=== PATIENT | male | born 1940 | race Hispanic/Latino ===

== ENCOUNTER 2024-01-17 16:29 | Inpatient (IN) | payer MEDICARE ==
[~2024-01-17] VITALS: Ht 167.6 cm; Wt 102.1 kg
[2024-01-17 17:27] LABS: BASOPHILS # (AUTO) 0.1 (0.0-0.1); BASOPHILS % 0.5 % (0.0-1.0); EOSINOPHILS # (AUTO) 0.1 (0.0-0.4); EOSINOPHILS % 1.5 % (0.0-6.0); HEMOGLOBIN 13.8 g/dL (14.0-18.0); LYMPHOCYTES # (AUTO) 0.5 (1.0-3.2); LYMPHOCYTES % 5.1 % (18.0-39.1); MEAN CORPUSCULAR HEMOGLOBIN 31.4 pg (28-32); MEAN CORPUSCULAR HGB CONC 32.9 g/dL (31-35); MEAN CORPUSCULAR VOLUME 95.5 fL (81-99); MONOCYTES # (AUTO) 1.1 (0.2-0.8); MONOCYTES % 11.1 % (4.4-11.3); NEUTROPHILS # (AUTO) 7.7 (2.1-6.9); NEUTROPHILS % 81.3 % (38.7-80.0); PLATELET COUNT 233 x10e3/uL (140-360); RED CELL DISTRIBUTION WIDTH 15.3 % (11.7-14.4); WHITE BLOOD COUNT 9.49 x10e3/uL (4.8-10.8)
[2024-01-17 17:44] LABS: ALBUMIN 3.9 g/dL (3.5-5.0); ALBUMIN/GLOBULIN RATIO 1.1 (0.8-2.0); ANION GAP 17.3 mmol/L (8-16); BILIRUBIN,TOTAL 0.5 mg/dL (0.2-1.2); CALCIUM 9.1 mg/dL (8.4-10.2); CREATININE, SERUM 2.79 mg/dL (0.72-1.25); POTASSIUM 4.3 mmol/L (3.5-5.1); TOTAL PROTEIN 7.6 g/dL (6.5-8.1)
[2024-01-17 17:51] LABS: TROPONIN I 0.051 ng/mL (0-0.300)
[2024-01-17] MEDS: SODIUM CHLORIDE 0.9% 1000ML 1,000 ML IV SCH (20:36)
[2024-01-17 20:55] VITALS: PULSE 76; RESP 17; TEMP 98.8
[2024-01-17 21:26] VITALS: BP 168/92; PULSE 75; RESP 20; TEMP 98; O2SAT 96
[2024-01-17 23:33] VITALS: BP 97/84; PULSE 78; RESP 20; TEMP 98.2; O2SAT 94
[2024-01-17 23:36] VITALS: BP 168/92; PULSE 75; RESP 20; TEMP 98; O2SAT 96
[2024-01-18] VITALS (10 sets, daily range): BP systolic 126–168; BP diastolic 66–99; PULSE 72–97; RESP 18–20; TEMP 98–99.4; O2SAT 93–98
[2024-01-18] MEDS ORDERED: TOUJEO SOL300 UNIT/1 (01:03)
[2024-01-18] MEDS ORDERED: FUROSEMIDE40 MG PO (01:03)
[2024-01-18] MEDS ORDERED: CLONIDINE HCL0.3 MG PO (01:03)
[2024-01-18] MEDS ORDERED: FARXIGA5 MG PO (01:03)
[2024-01-18] MEDS ORDERED: LEVOTHYROXINE75 MCG PO (01:03)
[2024-01-18] MEDS ORDERED: HYDRALAZINE HCL25 MG PO (01:03)
[2024-01-18] MEDS ORDERED: LOVASTATIN20 MG PO (01:03)
[2024-01-18] MEDS ORDERED: ALLOPURINOL300 MG PO (01:03)
[2024-01-18] MEDS ORDERED: PANTOPRAZOLE SO40 MG (01:03)
[2024-01-18] MEDS ORDERED: TRULICITY1.5 MG/0.5 (01:03)
[2024-01-18] MEDS ORDERED: LOSARTAN POTASS25 MG PO (01:03)
[2024-01-18 03:09] LABS: TROPONIN I 0.066 ng/mL (0-0.300)
[2024-01-18 05:57] LABS: BASOPHILS % 0.6 % (0.0-1.0); EOSINOPHILS # (AUTO) 0.1 (0.0-0.4); EOSINOPHILS % 0.9 % (0.0-6.0); HEMATOCRIT 42.5 % (38.2-49.6); HEMOGLOBIN 13.7 g/dL (14.0-18.0); LYMPHOCYTES # (AUTO) 0.8 (1.0-3.2); MEAN CORPUSCULAR HEMOGLOBIN 31.1 pg (28-32); MEAN CORPUSCULAR HGB CONC 32.2 g/dL (31-35); MEAN CORPUSCULAR VOLUME 96.4 fL (81-99); MONOCYTES % 15.3 % (4.4-11.3); NEUTROPHILS # (AUTO) 4.5 (2.1-6.9); NEUTROPHILS % 70.7 % (38.7-80.0); PLATELET COUNT 219 x10e3/uL (140-360); RED BLOOD COUNT 4.41 x10e6/uL (4.3-5.7); RED CELL DISTRIBUTION WIDTH 15.6 % (11.7-14.4); WHITE BLOOD COUNT 6.41 x10e3/uL (4.8-10.8)
[2024-01-18] MEDS: ACETAMINOPHEN 325 MG TAB PO PRN (06:12)
[2024-01-18 06:19] LABS: ALBUMIN 3.5 g/dL (3.5-5.0); ANION GAP 14.2 mmol/L (8-16); BILIRUBIN,TOTAL 0.4 mg/dL (0.2-1.2); CALCIUM 8.8 mg/dL (8.4-10.2); CREATININE, SERUM 2.35 mg/dL (0.72-1.25); POTASSIUM 4.2 mmol/L (3.5-5.1); TOTAL PROTEIN 6.9 g/dL (6.5-8.1)
[2024-01-18] MEDS ORDERED: ALBUTEROL/IPRATROPIUM 3 ML NEB NEB PRN (09:15)
[2024-01-18] MEDS ORDERED: DOCUSATE SODIUM 100 MG CAP PO PRN (09:15)
[2024-01-18] MEDS ORDERED: MELATONIN 3 MG TAB PO PRN (09:15)
[2024-01-18] MEDS ORDERED: SIMETHICONE 80 MG CHEW PO PRN (09:15)
[2024-01-18] MEDS ORDERED: DEXTROSE 50% SYRINGE 50 ML IV PRN (09:15)
[2024-01-18 10:20] LABS: CHOL/HDL RATIO 3.4 (3.9-4.7)
[2024-01-18 10:26] LABS: TROPONIN I 0.076 ng/mL (0-0.300)
[2024-01-18] MEDS: INSULIN REGULAR, HUMAN 100 UNIT/1 ML SQ SCH (12:18)
[2024-01-18] MEDS: ONDANSETRON HCL INJ 2MG/ML 2ML 2 MG/ML VIAL IV PRN (12:29)
[2024-01-18] MEDS: Morphine 4mg INJECTION 4 MG/ML INJ IV PRN (12:29)
[2024-01-18] MEDS: HYDRALAZINE HCL 25 MG TAB PO SCH (18:50)
[2024-01-18] MEDS: LOSARTAN POTASSIUM 25 MG TAB PO SCH (18:51)
[2024-01-18] MEDS ORDERED: GABAPENTIN600 MG PO (19:11)
[2024-01-18] MEDS: HEPARIN SOD (PORCINE) 5,000 UNIT/ML VIAL SC SCH (22:09)
[2024-01-19] VITALS (10 sets, daily range): BP systolic 132–188; BP diastolic 76–105; PULSE 64–88; RESP 16–20; TEMP 98.3–99.1; O2SAT 92–99
[2024-01-19] MEDS: METOPROLOL TARTRATE INJ 1 MG/ML VIAL IV PRN (03:29)
[2024-01-19 06:43] LABS: BASOPHILS % 0.5 % (0.0-1.0); EOSINOPHILS % 0.5 % (0.0-6.0); HEMATOCRIT 42.5 % (38.2-49.6); HEMOGLOBIN 13.5 g/dL (14.0-18.0); LYMPHOCYTES # (AUTO) 1.6 (1.0-3.2); LYMPHOCYTES % 24.8 % (18.0-39.1); MEAN CORPUSCULAR HEMOGLOBIN 31.2 pg (28-32); MEAN CORPUSCULAR HGB CONC 31.8 g/dL (31-35); MEAN CORPUSCULAR VOLUME 98.2 fL (81-99); MONOCYTES % 15.7 % (4.4-11.3); NEUTROPHILS # (AUTO) 3.8 (2.1-6.9); PLATELET COUNT 205 x10e3/uL (140-360); RED BLOOD COUNT 4.33 x10e6/uL (4.3-5.7); RED CELL DISTRIBUTION WIDTH 15.8 % (11.7-14.4); WHITE BLOOD COUNT 6.61 x10e3/uL (4.8-10.8)
[2024-01-19 07:03] LABS: ANION GAP 12.2 mmol/L (8-16); CALCIUM 8.3 mg/dL (8.4-10.2); CREATININE, SERUM 1.73 mg/dL (0.72-1.25); POTASSIUM 4.2 mmol/L (3.5-5.1)
[2024-01-19] MEDS: PANTOPRAZOLE SOD 40 MG TABEC PO SCH (09:17)
[2024-01-19] MEDS: ALLOPURINOL 100 MG TAB PO SCH (09:20)
[2024-01-19] MEDS: LEVOTHYROXINE SODIUM 75 MCG TAB PO SCH (09:37)
[2024-01-19] MEDS: ACETAMINOPHEN/CODEINE 300MG - 30MG TAB PO PRN (16:57)
[2024-01-19] MEDS: METOCLOPRAMIDE HCL 10 MG/2ML VIAL IV PRN (16:58)
[2024-01-20] VITALS (10 sets, daily range): BP systolic 144–172; BP diastolic 73–99; PULSE 81–103; RESP 17–20; TEMP 97.5–99.8; O2SAT 93–99
[2024-01-20 06:13] LABS: BASOPHILS % 0.3 % (0.0-1.0); EOSINOPHILS % 0.1 % (0.0-6.0); HEMOGLOBIN 15.1 g/dL (14.0-18.0); LYMPHOCYTES # (AUTO) 1.5 (1.0-3.2); LYMPHOCYTES % 16.2 % (18.0-39.1); MEAN CORPUSCULAR HEMOGLOBIN 31.1 pg (28-32); MEAN CORPUSCULAR HGB CONC 32.1 g/dL (31-35); MEAN CORPUSCULAR VOLUME 96.9 fL (81-99); MONOCYTES # (AUTO) 0.9 (0.2-0.8); MONOCYTES % 9.6 % (4.4-11.3); NEUTROPHILS # (AUTO) 6.9 (2.1-6.9); NEUTROPHILS % 73.5 % (38.7-80.0); PLATELET COUNT 228 x10e3/uL (140-360); RED BLOOD COUNT 4.85 x10e6/uL (4.3-5.7); RED CELL DISTRIBUTION WIDTH 15.7 % (11.7-14.4)
[2024-01-20 06:28] LABS: CALCIUM 9.9 mg/dL (8.4-10.2); CREATININE, SERUM 1.5 mg/dL (0.72-1.25)
[2024-01-20] MEDS: METOPROLOL TARTRATE INJ 1 MG/ML VIAL ONE (12:59)
[2024-01-21] VITALS (13 sets, daily range): BP systolic 144–185; BP diastolic 68–103; PULSE 79–97; RESP 18–23; TEMP 98.3–99.2; O2SAT 94–99
[2024-01-21] MEDS: HYDRALAZINE HCL 20 MG/ML VIAL IV ONE (05:33)
[2024-01-21] MEDS: METOPROLOL TARTRATE 25 MG TAB PO SCH (09:27)
[2024-01-21 09:57] LABS: CREATINE KINASE 860 IU/L (30-200)
[2024-01-21 11:17] LABS: LACTATE DEHYDROGENASE 397 IU/L (125-220)
[2024-01-21 11:25] LABS: PROTHROMBIN TIME 13.9 seconds (11.9-14.5)
[2024-01-22] VITALS (8 sets, daily range): BP systolic 164–186; BP diastolic 77–97; PULSE 79–88; RESP 18–22; TEMP 98.4–99.9; O2SAT 95–99
[2024-01-22] MEDS: HYDRALAZINE HCL 20 MG/ML VIAL IV PRN (00:58)
[2024-01-22] MEDS ORDERED: METOCLOPRAMIDE HCL 10 MG TAB PO PRN (15:30)
[2024-01-22 15:45] LABS: ALBUMIN 2.8 g/dL (3.5-5.0); ALBUMIN/GLOBULIN RATIO 0.8 (0.8-2.0); ANION GAP 13.7 mmol/L (8-16); BILIRUBIN,TOTAL 0.7 mg/dL (0.2-1.2); CALCIUM 7.8 mg/dL (8.4-10.2); CREATININE, SERUM 1.43 mg/dL (0.72-1.25); POTASSIUM 3.7 mmol/L (3.5-5.1); TOTAL PROTEIN 6.1 g/dL (6.5-8.1)
== END 2024-01-22 16:25 | disposition home or self-care (01) | DRG 178 ==
LOC: ER 16:34 → ERHOLD 18:34 → MED/SURG3 21:17
PROVIDERS: ADMIT Internal Medicine; ATTEND Internal Medicine
DX: U07.1 COVID-19 (principal); E87.1 Hypo-osmolality and hyponatremia; M62.82 Rhabdomyolysis; N17.9 Acute kidney failure, unspecified; E11.40 Type 2 diabetes mellitus with diabetic neuropathy, unspecified; G73.7 Myopathy in diseases classified elsewhere; I10 Essential (primary) hypertension; E78.5 Hyperlipidemia, unspecified; E03.9 Hypothyroidism, unspecified; K21.9 Gastro-esophageal reflux disease without esophagitis; E66.9 Obesity, unspecified; Z68.36 Body mass index [BMI] 36.0-36.9, adult; M10.9 Gout, unspecified; Z53.20 Procedure and treatment not carried out because of patient's decision for unspecified reasons; Z79.4 Long term (current) use of insulin; Z79.890 Hormone replacement therapy; F17.210 Nicotine dependence, cigarettes, uncomplicated
CPT/HCPCS: 36415; 70450; 71045; 72125; 72128; 72131; 80048; 80053; 80061; 82085; 82550; 82948; 83036; 83615; 83690; 83880; 84484; 85025; 85610; 93005; 93306; 94799; 95819; 96372; 99252; 99284; J0360; J1644; J2270; J2405; J7030; U0002

== ENCOUNTER 2024-04-09 06:24 | Day surgery (SDC) | payer MEDICARE ==
[2024-04-07 09:31] LABS: BASOPHILS # (AUTO) 0.1 (0.0-0.1); BASOPHILS % 0.7 % (0.0-1.0); EOSINOPHILS # (AUTO) 0.6 (0.0-0.4); EOSINOPHILS % 5.9 % (0.0-6.0); HEMATOCRIT 45.9 % (38.2-49.6); HEMOGLOBIN 14.3 g/dL (14.0-18.0); LYMPHOCYTES # (AUTO) 2.5 (1.0-3.2); LYMPHOCYTES % 23.4 % (18.0-39.1); MEAN CORPUSCULAR HEMOGLOBIN 31.4 pg (28-32); MEAN CORPUSCULAR HGB CONC 31.2 g/dL (31-35); MEAN CORPUSCULAR VOLUME 100.7 fL (81-99); MONOCYTES # (AUTO) 0.5 (0.2-0.8); MONOCYTES % 4.8 % (4.4-11.3); NEUTROPHILS # (AUTO) 6.8 (2.1-6.9); NEUTROPHILS % 64.8 % (38.7-80.0); PLATELET COUNT 293 x10e3/uL (140-360); RED BLOOD COUNT 4.56 x10e6/uL (4.3-5.7); RED CELL DISTRIBUTION WIDTH 15.2 % (11.7-14.4); WHITE BLOOD COUNT 10.55 x10e3/uL (4.8-10.8)
[2024-04-07 09:42] LABS: INR 1.02; PROTHROMBIN TIME 13.9 seconds (11.9-14.5)
[2024-04-07 09:50] LABS: ALBUMIN 3.8 g/dL (3.5-5.0); ALBUMIN/GLOBULIN RATIO 1.1 (0.8-2.0); ANION GAP 15.4 mmol/L (8-16); BILIRUBIN,TOTAL 0.4 mg/dL (0.2-1.2); CALCIUM 9.7 mg/dL (8.4-10.2); CHOL/HDL RATIO 4.3 (3.9-4.7); CREATININE, SERUM 2.43 mg/dL (0.72-1.25); POTASSIUM 4.4 mmol/L (3.5-5.1); TOTAL PROTEIN 7.4 g/dL (6.5-8.1)
[2024-04-09] VITALS (12 sets, daily range): BP systolic 105–136; BP diastolic 62–80; PULSE 59–64; RESP 10–18; TEMP 97.1; O2SAT 96–100
[~2024-04-09] VITALS: Ht 167.6 cm; Wt 106.1 kg
[~2024-04-09 06:24] MED LIST: ALLOPURINOL300 MG PO; CLONIDINE HCL0.3 MG PO; FARXIGA5 MG; FARXIGA5 MG PO; FUROSEMIDE40 MG PO; GABAPENTIN600 MG PO; HYDRALAZINE HCL25 MG PO; LEVOTHYROXINE75 MCG PO; LOSARTAN POTASS25 MG PO; LOVASTATIN20 MG PO; MOUNJARO5 MG/0.5 M; PANTOPRAZOLE SO40 MG; REPATHA SU140 MG/1 M; TOUJEO SOL300 UNIT/1; TRULICITY1.5 MG/0.5
[2024-04-09] MEDS ORDERED: VERAPAMIL HCL 2.5 MG/ML 2 ML VIAL ONE (08:39)
[2024-04-09] MEDS ORDERED: LIDOCAINE HCL 2% LOCAL 20 ML VIAL ONE (08:39)
[2024-04-09] MEDS ORDERED: NITROGLYCERIN/D5W 200 MCG/ML 250 ML ONE (08:39)
[2024-04-09] MEDS ORDERED: IOPAMIDOL 370 MG/ML 100 ML INFUS..BTL INJ ONE (08:39)
[2024-04-09] MEDS ORDERED: HEPARIN SOD/SOD CHLORIDE 2,000 ML ONE (08:39)
[2024-04-09] MEDS ORDERED: HEPARIN SOD (PORCINE) 1000 UNIT/ML 30ML ONE (08:39)
[2024-04-09] MEDS ORDERED: SODIUM CHLORIDE 0.9% 1000ML 1,000 ML ONE (08:39)
[2024-04-09] MEDS ORDERED: MIDAZOLAM HCL 2 MG/2 ML VIAL ONE (08:40)
[2024-04-09] MEDS ORDERED: FENTANYL CITRATE/PF 100MCG/2 ML INJ ONE (08:40)
== END 2024-04-09 12:00 | disposition home or self-care (01) ==
LOC: CATH LAB 06:24
PROVIDERS: ATTEND Internal Medicine Cardiovascular Disease
DX: I25.118 Atherosclerotic heart disease of native coronary artery with other forms of angina pectoris (principal); E78.5 Hyperlipidemia, unspecified; I10 Essential (primary) hypertension; I73.9 Peripheral vascular disease, unspecified; E11.9 Type 2 diabetes mellitus without complications; Z01.812 Encounter for preprocedural laboratory examination; Z79.4 Long term (current) use of insulin; Z79.85 Long-term (current) use of injectable non-insulin antidiabetic drugs; Z79.84 Long term (current) use of oral hypoglycemic drugs; Z79.899 Other long term (current) drug therapy; Z68.37 Body mass index [BMI] 37.0-37.9, adult; Z82.49 Family history of ischemic heart disease and other diseases of the circulatory system; Z83.3 Family history of diabetes mellitus
CPT/HCPCS: 36415; 80053; 80061; 85025; 85610; 93458; C1769; C1887; J1644; J2003; J2250; J3010; J7030; Q9967; 99152; 99153